=== PATIENT | male | born 1975 | race Caucasian/White ===

== ENCOUNTER 2022-03-30 09:24 | Outpatient (CLI) | payer BC, SELFPAY ==
--- NOTE | 2022-03-30 09:34 | ECG_ITS ---
Measurements Intervals [place] Rate: 78 P: 43 VA: 185 QRS: -17 QRSD: 82 T: 12 QT: 349 QTc: 397 Interpretive Statements SINUS RHYTHM INCOMPLETE RIGHT BUNDLE BRANCH BLOCK BASELINE ARTIFACT IS PRESENT NO PREVIOUS ECG AVAILABLE FOR COMPARISON Electronically Signed On 03-30-2022 16:03:36 WASTE TREATMENT OPERATOR by Zeina Briones M.D.
== END 2022-03-30 09:25 | disposition home or self-care (01) ==
PROVIDERS: PCP Nurse Practitioner Family; Visit Provider Orthopaedic Surgery
DX: F17.210 Nicotine dependence, cigarettes, uncomplicated (principal); I10 Essential (primary) hypertension; Z01.818 Encounter for other preprocedural examination; I45.10 Unspecified right bundle-branch block
CPT/HCPCS: 93005

== ENCOUNTER 2022-04-05 01:45 | Day surgery (SDC) | payer BC, SELFPAY ==
[2022-03-23 08:21] VITALS: BMI 30.5
--- NOTE | 2022-03-23 08:31 | PC.NURSE ---
Report to the Outpatient Waiting Room, entrance under the green pavilion located off [facility], at time _0800_ on date _[id number]_. Planned Procedure Time: _1000_. Time changes happen often and if your time is changed the preop area will call you the afternoon before. - You and your visitor will be asked to self-screen and do not enter if you have any COVID symptoms. - Only one visitor is requested with a max of two and NO children visitors are allowed at this time. - The patient visitor may be requested to leave or wait in car when not with patient due to distancing restrictions. - A mask is optional within the hospital. Patients may have clear liquids (water, carbonated beverages, clear teas, apple juice) until 3 hours prior to surgery with a maximum of 20 ounces. - No food from midnight until time of surgery Take the following medications with a SIP of water the morning of surgery: __Bystolic and Sertraline Medications to discontinue per physician ___None Date to take last dose Please no make-up, nail swedish, hairspray, perfume, deodorant, or body powder the day of surgery. No jewelry (including any body piercings) or valuables the day of surgery, leave them at home. Please take a shower or bath the night before, or the morning of, surgery with an antibacterial soap. Wear comfortable, loose fitting clothing. - Jewelry must be removed prior to entering the operating room. Rings and piercings that are not removed may be cut off. - The hospital will not accept responsibility for valuables. - Please leave all valuables, including medications, at home the day of surgery. If you are going home after surgery, a licensed company tanker truck driver must drive you home. - NO public transportation without another adult if you receive anesthesia. - We recommend that an adult stay with you for 24 hours following discharge. - We also recommend that you do not drive, make important decision, drink alcoholic beverages, or take any drugs that were not prescribed by your health care provider for at least 24 hours after your discharge time. Follow any additional instructions given to you from your surgeon. If you or anyone in your household have experienced Covid symptoms in the past week, please notify your surgeon or the nurse liaison at the phone number below for possible testing. Telephone instructions given to __Patient___and asked if any additional questions and then verbalized understanding. Patient advised to call surgeon office or pre surgery nurse liaison [phone] if any additional questions.
--- NOTE | 2022-03-31 14:57 | PM.IMHP ---
H&P: HPI History of Present Illness Date/Time: 03/31/22 14:57 Chief Complaint: the patient is a 46-year-old male who sees Dr. Pierre regarding his right shoulder. The patient has a chronic ongoing history of pain in the right shoulder this radiates into his upper arm he has pain with overhead type motion notes weakness and painful giving way with trying to do anything heavy or repetitive with the shoulder. It keeps him awake at night cannot go about his daily activities as he would like. He notes some limitation of function he has had chronic tendinitis in the shoulder but this has advanced and become more painful and weak over time. 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 He has tried a course of cortisone therapy and anti-inflammatories without significant relief. X-rays show type 2 acromion and mild AC joint arthrosis. An MRI scan was done that showed a full-thickness tear the anterior aspect of the supraspinatus tendon with a small portion of the tendon remaining intact posteriorly. There was a partial-thickness articular surface tear of the infraspinatus tendon as well at the insertion. There is also tendinitis and a partial-thickness tear of the subscapularis tendon not well characterized. No labral tear is seen. Long head of the biceps is intact and located in the groove. There is AC joint hypertrophy subacromial space is mildly narrowed no effusion is noted. At this point the patient is aware the above findings he has failed conservative measures and discuss further treatment options in detail Dr. Pierre he would now like to proceed with right shoulder surgical intervention. Review of Systems Review of Systems: Ten point review of systems otherwise negative [facility] Surgical History Surgical History History of hernia surgery Social History Social History Smoking packs per day: 2 Smoking cigarettes per day: 40.0 Years smoked: 15 Smoking pack-years: 30.00 Smoking status: Former smoker Smoking end date: 03/23/15 Alcohol intake: current Drinks per week: 21 Substance use type: marijuana Other substance usage details: Every once in awile Spiritual care concerns: No Meds Home Medications and Allergies Home Medications Medication Instructions Recorded Confirmed Type omeprazole 20 mg tablet,delayed 20 mg PO DAILY 03/06/19 03/23/22 History release allopurinol 300 mg tablet 300 mg PO DAILY 03/23/22 03/23/22 History nebivolol 5 mg tablet 5 mg PO DAILY 03/23/22 03/23/22 History rosuvastatin 40 mg tablet 40 mg PO HS 03/23/22 03/23/22 History sertraline 100 mg tablet 100 mg PO DAILY 03/23/22 03/23/22 History Allergies Allergy/AdvReac Type Severity Reaction Status Date / Time No Known Allergies Allergy Unverified 03/23/22 08:17 Exam Narrative: on exam the patient is noted be a well-developed well-nourished male no acute distress alert oriented x3. Normal mood and affect. He is noted to be 6 ft 3 in tall 243 lb with a BMI 30.4. Hearing and vision are intact. Respiratory is good no distress. Pulse regular rate and rhythm. Abdomen benign. Extremities show the patient's right shoulder to be painful with manipulation and range of motion. He has a positive impingement sign and painful giving way with rotator cuff strength testing. He has pain through the arc of motion particularly overhead type motion or reaching behind his back. Full active and passive motion are noted. Rotator cuff strength testing reproduces symptoms mildly weak with external rotation and abduction. No effusion or swelling shoulder joint is otherwise stable. Has full painless neck motion. Neurovascular is intact. Central nervous system within normal limits. Skin is intact without rashes or lesions. Assessment and Plan Assessment and plan (1) Unspecified rotator cuff tear or rup
--- NOTE | 2022-04-05 06:55 | WPDHPUPDATE1 ---
History and Physical Update Update Date/Time: 04/05/22 06:55 History and Physical has been reviewed, including an updated exam of the patient. There are NO changes in the patient's condition. Risks, benefits, and alternatives have been discussed and questions answered. Patient agrees to proceed with procedure.
[2022-04-05] MEDS: LACTATED RINGERS 1,000 ML 30 ML IV CONT ×2 (08:30→11:00)
[2022-04-05] MEDS: KETOROLAC 15 MG/ML VIAL (*BKC) IV PUSH (08:30)
[2022-04-05] MEDS: ACETAMINOPHEN 500 MG TABLET 1000 MG PO (08:30)
[2022-04-05 08:47] VITALS: BP 129/86; PULSE 76; RESP 14; TEMP 37; O2SAT 98
--- NOTE | 2022-04-05 08:49 | P.PNAN_ITS ---
Anes - Initial Pre Proc Eval Procedure: Operation Date: 04/05/22 10:00 Proposed Procedures p Right Shoulder Arthroscopy, Acromioplasty, Open Distal Clavicle Excision, Rotator Cuff Repair, Proceed As Indicated - Roderick Pierre MD Date/Time: 04/05/22 08:49 Surgeon: Roderick Pierre MD Pre Op Diagnosis: Rot Cuff Tear Rt Shoulder Patient Data Age: 46 Gender: M Height: 1.91 m Weight: 110.9 kg Allergies Allergy/AdvReac Type Severity Reaction Status Date / Time No Known Allergies Allergy Unverified 03/23/22 08:17 Home Medications Medication Instructions Recorded Confirmed Type omeprazole 20 mg tablet,delayed 20 mg PO DAILY 03/06/19 03/23/22 History release allopurinol 300 mg tablet 300 mg PO DAILY 03/23/22 03/23/22 History nebivolol 5 mg tablet 5 mg PO DAILY 03/23/22 03/23/22 History rosuvastatin 40 mg tablet 40 mg PO HS 03/23/22 03/23/22 History sertraline 100 mg tablet 100 mg PO DAILY 03/23/22 03/23/22 History Patient hx anesthesia problems: none Family hx anesthesia problems: none Results Review: All pre-operative results and documents have been reviewed as part of the pre- operative evaluation. [facility]LY [facility] Past Medical History Medical History (Updated 04/05/22 @ 08:49 by Deepak Boyle MD) HTN (hypertension) Hyperlipidemia Surgical History Surgical History History of hernia surgery Social History Social History Smoking packs per day: 2 Smoking cigarettes per day: 40.0 Years smoked: 15 Smoking pack-years: 30.00 Smoking status: Former smoker Smoking end date: 03/23/15 Alcohol intake: current Drinks per week: 21 Substance use type: marijuana Other substance usage details: Every once in awile Living arrangements: with family Spiritual care concerns: No Anes - Eval Final PreProcedure Day of Procedure 04/05/22 08:49 Patient weight: obese Heart: regular rate and rhythm Lungs: clear to auscultation Airway: Mallampati scale class II Neurological: alert and oriented Last oral intake: >/= 8 hours ASA classification: II Emergent: no Anesthetic plan: proceed Anesthesia type and monitoring: general ETT and standard monitoring Results Review: All pre-operative results and documents have been reviewed as part of the pre- operative evaluation. Informed Consent: The patient's anesthetic plan and its attendant risks and benefits were discussed with the patient/family/POA. Questions were solicited and answers provided to the satisfaction of the patient/family/POA.
--- NOTE | 2022-04-05 09:24 | WPDANESPNB ---
Anes - Peripheral Nerve Block Date/Time: 04/05/22 09:24 I have discussed with the patient/family/POA the placement of a peripheral nerve block for post-operative pain management, including associated risks, benefits, complications, and side effects. Alternative methods of post-operative analgesia were detailed. Questions were solicited and answers provided to the satisfaction of the patient/family/POA. Time-Out: A pre-procedural Time-Out was completed immediately before starting the procedure and confirmed: Patient Identification, Site, Procedure, Patient Position and the Availability of Requisite Equipment. Clinical Indications: Acute post-operative pain management requested by the operative surgeon. Nerve Block Insertion Note Anes-nerve block: interscalene right Patient position: supine Skin prep: chlorhexidine Needle: 22 gauge, stimulating, insulated echogenic needle. Needle length: 50 mm Technique: ultrasound Injectate: bupivacaine 0.5% with epi 5 mcg/ml (30 no epi) and dexamethasone (mg) (8) Observations: tolerated well Complications: none Procedure start time:: 917 Procedure end time:: 922
[2022-04-05] MEDS: ceFAZolin 2 GM/D5W 50 ML 2 GM/50 ML BAG IVPB (09:25)
--- NOTE | 2022-04-05 10:45 | W.PM.PROC2 ---
Procedure Note - Detailed Date of Procedure 04/05/22 Pre-op Diagnosis Rot Cuff Tear Rt Shoulder Post-op Diagnosis Same Procedure Performed Rotator cuff repair, distal clavicle excision Surgeon Roderick Pierre MD Client Experience Consultant Ceasar Ovalles Anesthesia General Description of Procedure . Patient brought to the operative 7. A general anesthetic was administered placed in the beach chair position the left shoulder exposed.? After sterile prep and drape standard portals were used for arthroscopy posterior lateral the joint itself looked reasonably good the biceps tendon was intact.? He had fraying and tearing of the rotator cuff area in the supraspinatus tear region.? Edematous the subacromial space and an intense bursa was encountered this was debrided with a shaver and acromioplasty performed arthroscopically.? He was quite tight however is acromion was then. I then proceeded to open the shoulder longitudinal incision made from the AC joint distalward over the shoulder.? Dissection carried down to the fascia the fascia of the aces acromioclavicular joint split the AC joint found a distal clavicle excision performed removing 3 to 4 millimeters of bone.? The edges beveled.? The deltoid was then split from the tip of the acromion and the rotator cuff thinning and tearing noted this is debrided and repaired with 2. Ethibond.? This tear was moderate sized.? At this point the deltoid was repaired to itself the prominent trapezius with 2. Ethibond I closed 2-0 Vicryl and popeye.? Sterile dressing applied patient tolerated well left the operating room satisfactory condition. Estimated Blood Loss 50 Drains No Packing No Pathology None sent Complications No immediate complications Condition Stable Disposition PACU
[2022-04-05 11:05] VITALS: BP 110/76; PULSE 64; RESP 19; TEMP 36.6; O2SAT 100
[2022-04-05 11:20] VITALS: BP 121/80; PULSE 66; RESP 18; O2SAT 99
[2022-04-05 11:35] VITALS: BP 129/75; PULSE 73; RESP 16; O2SAT 100
[2022-04-05 11:43] VITALS: BP 133/81; PULSE 65; RESP 16
--- NOTE | 2022-04-05 11:43 | P.OPB_ITS ---
Procedure Note - Brief Procedure Note - Brief Date of procedure: 04/05/22 Pre-op diagnosis: Rot Cuff Tear Rt Shoulder preop diagnosis impingement AC joint arthrosis and rotator cuff tendon tear right shoulder. Postop diagnosis- same, status post right shoulder arthroscopy acromioplasty open distal clavicle excision rotator cuff tendon repair. Procedure performed: Right shoulder arthroscopy acromioplasty open distal clavicle excision and rotator cuff tendon repair Description of procedure: patient was taken to the operating room April 05, 2022 I enter the room at 9:50 a.m. I assisted with positioning of the patient on the beach chair positioner on the operating room table followed by assisting with a sterile prep and drape for surgery. Dr. Pierre then entered the room and proceeded with the shoulder arthroscopy portion during that time I assisted with positioning of the arm and directing the arthroscope for visualization of the rotator cuff, the joint and the subacromial space. Once the arthroscopic portion was completed I then assisted with wound retraction on the open procedure, suction and hemostasis with the cautery. Once the distal clavicle excision and rotator cuff tendon repair was completed I then proceeded to irrigate the wound after good hemostasis was obtained. I then proceeded to close the skin incision with 2-0 Vicryl and popeye I then applied a sterile dressing and placed the patient in the shoulder immobilizer. I then assisted with transfer of the patient from the operating table to the stretcher for transfer to the recovery room. The patient was in good condition and stable. Total blood loss was approximately 50 cc. Patient was expected to be discharged after the outpatient procedure today. I exited the room at 11:00 a.m. Implants: N/A Surgeon: Roderick Pierre MD surgeon Ceasar Ovalles PA-C physician office assistant
[2022-04-05 12:10] VITALS: BP 134/88; PULSE 70; RESP 16
== END 2022-04-05 12:35 | disposition home or self-care (01) ==
PROVIDERS: PCP Nurse Practitioner Family; Visit Provider Orthopaedic Surgery
PROC: (CPT 29805; principal; 2022-04-05 10:00)
DX: M75.101 Unspecified rotator cuff tear or rupture of right shoulder, not specified as traumatic (principal); G89.18 Other acute postprocedural pain; I10 Essential (primary) hypertension; E78.5 Hyperlipidemia, unspecified; Z87.891 Personal history of nicotine dependence; F12.90 Cannabis use, unspecified, uncomplicated; E66.9 Obesity, unspecified; Z68.30 Body mass index [BMI] 30.0-30.9, adult
CPT/HCPCS: 23412; 23120; 64415; A9270; J0690; J1100; J1885; J2250; J2405; J2704; J2710; J3010; J7120

== ENCOUNTER 2024-07-25 01:36 | Day surgery (SDC) | payer BC, SELFPAY ==
[2024-07-21 11:49] VITALS: BMI 30.6
--- OUTSIDE RECORDS SUMMARY | 2024-07-25 01:41 | XMS_ITS | Data Portability ---
Author Organization [place] [facility], Main Office Address [address] [place] [address] Care Team Providers Care Equipment Application Specialist Name Role Phone KEREN YODER Primary Care Provider KEREN YODER Referring Provider [phone] Assessment Encounter Date Assessment Date Assessment LastModified by Organization Details LastModified Time 06/27/2022 06/27/2022 Patient returns status post rotator cuff repair right. His he is doing quite well status post surgery he has got good motion strength neurologically he is intact he has progressed nicely. I think he can return to normal activity at this point will return to work. If he has any changes or problems I have asked him to call. Otherwise he is dismissed to normal activity. tori Not available 06/27/2022 14:13:32 Plan of Treatment Reminders Order Date Submit Date Provider Last Modified By Organization Details Last Modified Time Details Appointments None recorded. Lab uric acid, serum or plasma 2022 023 [email or web address] [facility] [address] [place], [address], 3 08:36:00 TSH, serum or plasma 2022 023 [email or web address] [facility] [address] [place], [address], 3 08:36:01 lipid panel, serum 2022 023 [email or web address] [facility] [address] [place], [address], 3 08:36:00 CBC w/ auto diff 2022 023 [email or web address] [facility] [address] [place], [address], 3 08:36:00 CMP, serum or plasma 2022 023 [email or web address] [facility] [address] [place], [address], 3 08:36:00 glycohemogl obin, total, blood 2022 023 [email or web address] [facility] [address] [place], [address], 3 08:36:00 Referral gastroenter ologist referral - Colonoscopy [address] [facility], [address], [address], [address], 4 08:46:41 Procedures None recorded. Surgeries None recorded. Imaging None recorded. Medication Orders rosuvastati n 40 mg tablet 2022 023 [facility][id number], [address] [place], [address], 3 17:19:40 Patient TargetsNo targets recorded. Patient Instructions Encounter Date Encounter Id Patient Instructions Last Modified By Organization Details Last Modified Time 03/13/2023 [id number] Pt aware of Bogu e departure 03/13/23. Recommend fu in 3-4 mo for anxiety, lipid, htn. 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 [id number] [facility] [address] [place], [address], 06/14/2022 22:06:02 05/16/19 23 05/11/2022 home sleep study No observ ation record ed. [id number] [facility] [address] [place], [address], 06/14/2022 22:06:02 Result Notes None recorded. Problems Name Problem SNOMED Code Status Onset Date Resolution Date Notes Provider Name and Address Organization Details Recorded Time Impacted cerumen of bilateral ears 7406260237590 108 Active 2019 Not Available [facility] 3 22:05:04 Rupture of rotator cuff of left shoulder 3632981840957 9102 Active 2021 Not Available [facility] 3 22:05:04 Pain of right shoulder joint 2059389229485 9100 Active 2021 Not Available [facility] 3 22:05:04 Tendinitis of right rotator cuff 4800072829866 9104 Active 2021 Not Available [facility] 3 22:05:05 Heartburn 12431803 Active 2019 Not Available [facility] 3 22:05:05 Obsessive- compulsive disorder 772395985 Active 2019 Not Available [facility] 3 22:05:05 Insomnia 007917817 Active 2019 Not Available [facility] 3 22:05:05 Partial thickness rotator cuff tear 515408650 Active 2022 Not Available [facility] 3 22:05:05 Full thickness rotator cuff tear 881173283 Active 2021 Not Available [facility] 3 22:05:05 Impingemen t syndrome of right shoulder region 7946324791308 02 Active 2021 Not Available [facility] 3 22:05:05 Elevated blood-pres sure reading without diagnosis of hypertensi on 983262681 Active 2019 Not Available [facility] 3 22:05:05 Anxiety 00219350 Active 2019 Not Available [facility] 3 22:05:06 Hyperlipid emia 45103656 Active 2019 Not Available [facility] 3 22:05:06 Acid reflux 164488995 Active 2019 Not Available [facility] 3 22:05:06 Sleep apnea 06025757 Active 2021 Not Available [facility] 3 22:05:06 Gout 90222579 Active 2019 Not Available [facility] 3 22:05:06 Essential hypertensi on 22611273 Active 2022 Keren Yoder NP [address], [address] , [facility] [employer] [facility] 3 17:09:08 Notes:Keren Yoder NP [facility] home sleep study 05/11/22 AHI = 6 Medical History: Anxiety/OCD Obesity with mild OSAHS, AHI = 6, 05/11/22 Hypertension Mixed hyperlipidemia KATERIN Gout Right supraspinatus/infraspinatus tears Procedure History: Herniorrhaphy Right rotator cuff debridement 2021 Problem Notes None recorded. Procedures Surgical History Date Name Laterality Status Provider Name and Address Organization Details Recorded Time Hernia Repair completed Not Available [facility] 06/14/2022 22:04:29 Imaging Results Imaging Date Name Status LastModified by Organiz ation Details LastModified Time 05/11/2022 home sleep study completed [id number] [facility] [address] [place], [address], 06/14/2022 22:06:02 05/11/2022 home sleep study completed [id number] [facility] [address] [place], [address], 06/14/2022 22:06:02 Procedure Notes None recorded. Medical Equipment None Reported. Allergies No known drug allergies Medications Name Sig Start Date Stop Date Status Note LastModified by Organization Details LastModified Time amoxicill in 500 mg capsule TK ONE C PO TID TAT 07/13 completed Not Available Not Available Not Available prednison e 10 mg tablet 12/15 completed Not Available Not Available Not Available triamcino lone acetonide 0.5 % topical cream APPLY THIN LAYER TOPICALL Y TO THE AFFECTED AREA TWICE DAILY 03/13 completed Not Available Not Available Not Available meloxicam 15 mg tablet TAKE 1 TABLET BY MOUTH EVERY DAY NEEDED WITH FOOD active Not Available Not Available No t Available bupivacai ne HCl 0.5 % (5 mg/mL) injection solution Take 20 mg by injectio n route. 12/15 completed Not Available Not Available Not Available sertralin e 100 mg tablet TAKE 1 TABLET BY MOUTH EVERY DAY active Not Available Not Available No t Available prednison e 10 mg tablets in a dose pack Take 1 tab by mouth, 3 times a day for 3 daysTake 1 tab by mouth 2 times a day for 2 daysTake 1 tab by mouth once a day for 1 day 12/15 completed Not Available Not Available Not Available Kenalog 10 mg/mL suspensio n for injection In office injectio n administ ered by the provider 12/15 completed Not Available Not Available Not Available hydrocodo ne 7.5 mg-acetam inophen 325 mg tablet TAKE 1 TABLET BY MOUTH EVERY 4 HOURS NEEDED FOR PAIN 03/13 completed Not Available Not Available Not Available indometha candace 50 mg capsule TK 1 C PO TID 12/11 completed Not Available Not Available Not Available omeprazol e 20 mg capsule,d elayed release Take 1 capsule every day by oral route. 03/13 completed Not Available Not Available Not Available allopurin ol 300 mg tablet TAKE 1 TABLET BY MOUTH EVERY DAY active Not Available Not Available No t Available zolpidem 5 mg tablet 1 tab po nightly prn sleep active Not Available Not Available No t Available lorazepam 1 mg tablet TK 1 T PO 30 MINUTES PRIOR TO INJECTIO N 12/11 completed Not Available Not Available Not Available levofloxa candace 500 mg tablet TK 1 T PO QD 12/11 completed Not Available Not Available Not Available methylpre dnisolone 4 mg tablets in a dose pack FPD 12/11 completed Not Available Not Available Not Available gentamici n 0.1 % topical ointment QUAN AA BID UTD 12/11 completed Not Available Not Available Not Available naproxen 500 mg tablet TK 1 T PO BID WF FOR 10 TO 14 DAYS 12/11 completed Not Available Not Available Not Available rosuvasta tin 10 mg tablet TAKE 1 TABLET BY MOUTH EVERY NIGHT 03/30 completed stopped taking- Nov 2021. Not Available Not Available Not Available rosuvasta tin 40 mg tablet TAKE 1 TABLET BY MOUTH EVERYDAY AT BEDTIME active Not Available Not Available No t Available lidocaine (PF) 5 mg/mL (0.5 %) injection solution Take 30 mg by injectio n route. 12/15 completed Not Available Not Available Not Available nebivolol 5 mg tablet TAKE 1 TABLET DAILY DIRECTED 2023 active Not Available Not Available Not Avai lable Colcrys 0.6 mg tablet TK 1 T PO BID 12/11 completed Not Available Not Available Not Available Vitals Date Recorded Body mass index (BMI) Body height Body weight Provider Name and Address Organization Details Last Updated DateTime 04/18/2022 30.5 kg/m2 190.5 cm 730316.54 g Not Available [facility] 06/14/2022 22:05:00 Date Recorded Body mass index (BMI) Body height Body weight Provider Name and Address Organization Details Last Updated DateTime 05/02/2022 30.5 kg/m2 190.5 cm 496250.54 g Not Available [facility] 06/14/2022 22:05:01 Date Recorded Body mass index (BMI) Body height Body weight Provider Name and Address Organization Details Last Updated DateTime 05/30/2022 30.5 kg/m2 190.5 cm 511145.54 g Not Available [facility] 06/14/2022 22:05:01 Date Recorded Body height Body mass index (BMI) Body weight Provider Name and Address Organization Details Last Updated DateTime 06/27/2022 190.5 cm 30.5 kg/m2 634740.54 g Nely Louise ATC L [place] [facility] 06/27/2022 14:06:56 Date Recorded Body height Body mass index (BMI) Body weight Body temperature Heart rate Respiratory rate Oxygen saturation Oxygen saturation in Arterial blood by Pulse oximetry Pain severity - 0-10 verbal numeric rating [Score] - Reported Systolic blood pressure Diastolic blood pressure Provider Name and Address Organization Details Last Updated DateTime 3 190.5 cm 30.6 kg/m2 959896. 83 g 96.1 [degF] 85 /min 16 /min 95 % 95 % 0 118 mm[Hg] 70 mm[Hg] Keren Johnson RN [place] [facility] 3 17:00:59 Social History Question Answer Notes LastModified by Organizat ion Details LastModified Time Tobacco Smoking Status Former Smoker Quit 5 years ago Not Available [facility] 06/14/2022 22:04:24 Do You Have An Advance Directive? No [id number] Information not available 06/14/2022 What Is Your Level Of Alcohol Consumption? Occasional MIGRATION.33471 [id number] Information not available 06/14/2022 What Is Your Code Status? Full Code [id number] Information not available 06/14/2022 In The 14 Days Before Symptom Onset, Have You Had Close Contact With A Laboratory-confi rmed COVID-19 While That Case Was Ill? No [email or web address].[id number] [id number] Information not available 06/14/2022 In The 14 Days Before Symptom Onset, Have You Had Close Contact With A Person Who Is Under Investigation For COVID-19 While That Person Was Ill? No MIGRATION.53567 [id number] Information not available 06/14/2022 What Type Of Diet Are You Following? 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 No MIGRATION.44873 74577 Information not available 06/14/2022 Do You Use Insect Repellent Routinely? Yes MIGRATION.53313 [id number] Information not available 06/14/2022 [facility] MIGRATION.78906 38407 Information not available 06/14/2022 Do You Have A Medical Power Of Area Sales Manager? No MIGRATION.41113 35070 Information not available 06/14/2022 Do You Have Any Pets? Yes MIGRATION.[id number] Information not available 06/14/2022 What Is Your Relationship Status? MIGRATION.[id number] Information not available 06/14/2022 Do You Use Your Seat Belt Or Car Seat Routinely? Yes Information not available 03/13/2023 Do You Have Smoke And Carbon Monoxide Detectors In Your Home? Yes MIGRATION.28614 [id number] Information not available 06/14/2022 Are You Passively Exposed To Smoke? No MIGRATION.85826 31733 Information not available 06/14/2022 Are There Any Smokers In Your House? No MIGRATION.55323 01899 Information not available 06/14/2022 Do You Participate In Social Media? Yes Information not available 03/13/2023 Do You Feel Stressed (tense, Restless, Nervous, Or Anxious, Or Unable To Sleep At Night)? [id number] MIGRATION.49614 91733 Information not available 06/14/2022 Do You Use Sunscreen Routinely? Yes MIGRATION.73360 67440 Information not available 06/14/2022 Have You Recently Traveled Abroad? No MIGRATION.49532 56250 Information not available 06/14/2022 Are You Currently In School? No MIGRATION.04307 12573 Information not available 06/14/2022 Do You Have Any Dietary Restrictions? No MIGRATION.47476 06479 Information not available 06/14/2022 Sex: Unknown Functional Status Question Answer Note LastModified by [email or web address] ion Details LastModified Time What is your exercise level? Occasional [id number] Information not available 06/14/2022 Mental Status None recorded. Family History Relationship Description Onset Age of this Age Resolved Age Notes LastModified by Organization Details LastModified Time Father Sleep apnea [id number] Not available 06/14/2022 22:04:30 Medical History Condition Response BLINDNESS N RHEUMATIC FEVER N KIDNEY STONES N BLADDER PROBLEMS N MRSA N OTHER # 1 N POLIO N LUNG DISEASE/DISORDER N COPD N RADIATION / CHEMOTHERAPY N Other # 2 N BLOOD DISEASES N SURGERY N EAR OR HEARING PROBLEMS N MUMPS N FEMALE PROBLEMS / INFECTIONS N DEPRESSION (INCLUDING POST ) N BOWEL PROBLEMS N STROKE/TIA N THYROID DISEASE N ULCERS N BENIGN PROSTATIC HYPERPLASIA N MEASLES N CERVICALGIA N TB SKIN TEST N MYOCARDIAL INFARCTION N OBESITY N PARAPELGIA N GERD/NAUSEA N ANEURYSM N URINARY/BLADDER/KIDNEY PROBLEMS N CORONARY ARTERY DISEASE (CAD) N MENIERE'S DISEASE N ADDICTION CONCERNS N ENDOMETRIOSIS N USE OF BLOOD THINNERS N SKIN PROBLEMS N EMPHYSEMA N GASTROINTESTINAL DISORDER N MUSCLE,JOINT OR BONE PROBLEMS N GASTROINTESTINAL BLEEDING N BLOOD CLOTS N ASTHMA N CATARACTS N ERECTILE DYSFUNCTION N GI PROBLEMS N CHF N Low Testosterone N NEUROPATHY N INFERTILITY N AIDS/HIV N FRACTURES N CHEMOTHERAPY / RADIATION N VISION/EYE PROBLEMS N LIVER DISEASE N MALE HYPOGONADISM N HYPERTENSION Y ANXIETY DISORDER N BLOOD TRANSFUSION N ANEMIA/BLOOD DISORDER N CHRONIC EAR INFECTIONS N BRONCHITIS N TUBERCULOSIS N GLAUCOMA N FOOT PROBLEM N DIVERTICULITIS N CHICKENPOX N SLEEP APNEA N ALLERGIES/HAYFEVER N INFECTIOUS DISEASE N HEART ARRHYTHMIA N PROSTATE N INSOMNIA N HIGH CHOLESTEROL / HYPERLIPIDEMIA Y EYE PROBLEMS N HYPERTHYROIDISM N EATING DISORDER N NEUROLOGICAL PROBLEMS N EDEMA N CHRONIC PAIN SYNDROME N HYPOTHYROIDISM N CAROTID BLOCKAGE N CONSTIPATION N BACK / NECK PROBLEMS N HAVE YOU BEEN HOSPITALIZED OR SEEN IN [facility] IN THE PAST YEAR ? N ATHEROSCLEROSIS N BREAST PROBLEMS N DIALYSIS N ECZEMA N FIBROMYALGIA N OSTEOPOROSIS N ARTHRITIS N NO SIGNIFICANT PAST MEDICAL HISTORY N APPENDICITIS N DIABETES, TYPE N BAD TEETH N HEARTBURN / REFLUX Y ADD/ADHD N AUTISM SPECTRUM DISORDER (ASD) N HEPATITIS / LIVER DISEASE N PULMONARY DISEASE N GOUT Y SLEEP DISORDER N ALZHEIMER'S DISEASE N PAIN N HERPES N DEMENTIA N SEIZURES/EPILEPSY N HEADACHES/MIGRAINES N VASCULAR DISEASE N PACEMAKER N DIZZINESS N KIDNEY DISEASE N HEART DISEASE/HEART PROBLEMS N SCARLET FEVER N MULTIPLE SCLEROSIS N MENTAL DISORDER/ILLNESS N DEVELOPMENTAL OR BEHAVIORAL DISORDERS N CARDIAC ARRHYTHMIA N CANCER: SPECIFY N PNEUMONIA N Gall Stones N ATRIAL FIBRILLATION N PULMONARY EMBOLISM N AUTOIMMUNE DISEASE N Immunizations Vaccine Type Date Status Note Provider Nam e and Address Organization Details Recorded Time SARS-COV-2 (COVID-19) vaccine, UNSPECIFIED 1 completed Not Available [facility] 06/14/2022 22:05:55 Tdap 2 completed Not Available [facility] 06/14/2022 22:05:56 Influenza, split virus, quadrivalent, PF 2 completed Not Available [facility] 06/14/2022 22:05:56 Influenza, split virus, quadrivalent, PF 1 completed Not Available [facility] 06/14/2022 22:05:56 Influenza, split virus, quadrivalent, PF 3 completed Keren Johnson RN [facility] [employer] [facility] 03/13/2023 18:27:02 Past Encounters Encounter ID Performer Location Encounter Start Date Encounter Closed Date Diagnosis/Indication Diagnosis SNOMED-CT Code Diagnosis ICD10 Code Diagnosis Note [id number] [facility] [address] [facility] [place] [address] 07/13/2020 00:00:00 07/13/2020 11:12:03 [id number] [facility] [address] [facility] [place] [address] 01/12/2021 00:00:00 01/12/2021 17:34:53 [id number] [facility] [address] [facility] [place] [address] 06/15/2021 00:00:00 06/15/2021 17:48:34 [id number] [facility] [place] [address] [place] [address] 06/22/2021 00:00:00 06/22/2021 16:37:34 [id number] [facility] [place] [address] [place] [address] 09/09/2021 00:00:00 09/09/2021 15:36:51 [id number] [facility] [address] [facility] [place] [address] 12/15/2021 00:00:00 12/21/2021 07:53:16 [id number] [facility] [address] [place] [address] 12/22/2021 00:00:00 12/22/2021 14:14:57 [id number] [facility] [address] [facility] [place] [address] 03/30/2022 00:00:00 03/30/2022 11:54:56 [id number] [facility] [place] [address] [place] [address] 04/18/2022 00:00:00 04/18/2022 14:09:46 [id number] [facility] [place] [address] [place] [address] 05/02/2022 00:00:00 05/02/2022 14:33:02 [id number] [facility] [place] [address] [place] [address] 05/30/2022 00:00:00 05/30/2022 14:13:49 [id number] Roderick Pierre MD [facility] [place] [address] [place] [address] 06/27/2022 13:51:10 06/27/2022 14:30:13 Pain of right shoulder joint 5101030112 4012855 M25.511 Impingemen t syndrome of right shoulder region 9073200666 45746 M75.41 Partial th ickness rotator cuff tear 747001649 M75.932 [id number] Keren Yoder NP [facility] [address] 03/13/2023 16:49:04 03/13/2023 17:42:50 Administration of influenza vaccine 13217692 Z23 Anxiety 87965598 F41.9 Sertraline 100 mg po daily. Essential hypertension 46523304 I10 Nebivolol 5 mg Hyperlipidemia 61842321 E78.5 Rosuvastat in 40 mg po nightly. Sleep apnea 93043267 G47 .30 CPAP. Gout 73315638 M10.9 allopurino l 300 mg po daily. No flares in 6 mo. Watching diet. Anemia screening 6334316 07 Z13.0 Screening for malignant neoplasm of colon 815426363 Z12.11 GI referral sent for colonoscop y. Diabetes m ellitus screening 843201721 Z13.1 Thyroid di sorder screening 416003212 Z13.29 Adult heal th examination 072006435 Z00.00 Encouraged well balanced meals, active lifestyle, and routine vision and dental appt. Health Concerns Section Related Observation LastModified by Organization Detai ls LastModified Time None Recorded Concern Status LastModified by Organization Details LastModified Time None Recorded Advance Directives Directive N: Payers Encounter Date Sequence Insurance Name Policy Number Policy Hernandez Covered Member ID Hernandez Member ID Guarantor Name 06/27/2022 1 [employer] [id number] Faheem Farley [id number] Anand Farley 03/13/2023 1 [facility]: (PPO) [id number] Faheem Farley [id number] Anand Farley Notes Date Note Type Note Provider Name and Address Organization Details Recorded Time 06/27/2022 text/html Patient returns status post rotator cuff repair right. He has got full full motion now and his strength is returning he seems quite happy he has got very little in the way of pain wants to return to work. Roderick Pierre MD [address], [place], [address], [employer] 06/27/2022 14:13:54 03/13/2023 text/html Here for wellness visit. Lipid- low fat diet. Staying active. 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 Never had colonoscopy.[facility]. Keren Yoder NP [address], [place], [address], [employer] 03/13/2023 17:40:15
--- OUTSIDE RECORDS SUMMARY | 2024-07-25 01:41 | XMS_ITS | Continuity of Care Document ---
Author Organization [facility] Address [address] [place] [address] [address] [place] [address] Phone Care Team Providers Care Market Asset Protection Manager Name Role Phone Jaspreet OD, Bobbi Unavailable Unavailable Allergies, Adverse Reactions, Alerts Substance Reaction Status Criticality No Known Allergies Active No Inform ation Medications Medication Instructions Dosage Effective Dates (start - stop) Status Comments allopurinol 100 mg tablet take 1 tablet by oral route 3 times every day 100 MG - Active omeprazole 40 mg capsule,delayed release take 1 capsule by oral route every day before a meal 40 MG - Active Bystolic 5 mg tablet take 1 tablet by oral route every day 5 MG - Active sertraline 100 mg tablet take 1 tablet by oral route every day 100 MG - Active Valtrex 1 gram tablet take 2 tablet by oral route every 12 hours 2000 MG - No Longer Active Chantix Starting Month Rickey 0.5 mg (11)-1 mg (42) tablets in dose pack use as directed - No Longer Active OMEPRAZOLE (unknown strength) take 2 capsule by oral route every day before a meal Not Available - No Longer Active Procedures Procedure Date N/C Glasses Check No Charge Visit Results Test Name Date and Time Measure Units Reference Range Abnormal Flag Status Commen ts Panel Description: [id number] Final Image Zeiss Result 1 Panel Description: [id number] Final Image Zeiss Result 2 Panel Description: [id number] Final Image Zeiss Result 3 Panel Description: [id number] Final Image Zeiss Result 4 Advance Directives Directive Yes / No Effective Date File Name No Information Encounters Encounter Description Practice Location Reason(s) For Visit Diagnoses Date Provider Providers Copied on Encounter [facility], [address] [place] [address], [id number], tel:[phone] [facility] DW[facility] ZUNIGA blurry vision (chief complaint) Anatomical narrow angle of bilateral eyePresbyopia 4 Jaspreet Martines. [address], [address], [place], [address], [place]. tel:[phone] Referring Provider: Bobbi Valdez, [address], [place], [address]. tel:[phone] [facility], [address] [place] [address], [id number], tel:[phone] [facility] ZUNIGA No Information 9 Natacha Alejandro. [address], [address], [place], [place], [id number] , [place]. tel:[phone] [facility], [address] [place] [address], [id number], [place] tel:[phone] [facility] ZUNIGA No Information 4 Natacha Alejandro. [address], [address], [place], [place], [id number] , [place]. tel:[phone] Referring Provider: Bobbi Valdez, [address], [place], [address]. tel:[phone] [facility], [address] [place] [address], [id number], [place] tel:[phone] [facility] ZUNIGA [facility] Jaspreet Martines. [address], [address], [place], [address], [place]. tel:[phone] Referring Provider: Bobbi Valdez, [address], [place], [address]. tel:[phone] Family History Family Member Type Diagnosis Age At Onset No Information Payers Payer name Insurance type Covered green party ID [id number] Social History Type Description Quantity Date Captured Comments Alcohol Use Details Caffeine Use Details Tobacco Use Status No Information Smoking Status Former smoker Smoking Tobacco Use Details Cigarette: No Details Available Cigarette: No Details Available Non-Smoking Tobacco Use Details : No Details Available : No Details Available Sex Male Vital Signs Date / Time: Height Weight BMI Pulse Rate Blood Pressure Temperature Respiratory Rate Body Surface Area Head Circumference Head Circ. Percentile Wt./Bob. Percentile BMI percentile Pulse Ox Inhaled Ox 10:32 AM 75.00 in 108.862 kg (240.00 lbs) 30.0 0 kg/m eter (2) Chief Complaint And Reason For Visit From encounter dated '05/28/2023 09:25'. blurry vision (chief complaint). Description: The 47 year old male presents for evaluation of blurry vision, OU, at near, constant and getting worse. He's been using OTC readers and grabbing stronger and stronger ones over time. He's now using a +1.75 OTC reader. Reason For Referral Reason For Referral No Information Plan Of Treatment Date Type Action Status Goal Tobacco cessation counseling completed Future Order: Radiology Order Ze [facility] HD-OCT DWIGHT ([id number]), Sent on: Sent History Of Present Illness Encounter Date Complaint History Of Prese nt Illness blurry vision The 47 year old male presents for evaluation of blurry vision, OU, at near, constant and getting worse. He's been using OTC readers and grabbing stronger and stronger ones over time. He's now using a +1.75 OTC reader. Functional Status Date Functional Assessmen t No Information Instructions Date Instruction Additional Infor cain Impression/Plan Related to Anato mical narrow angle of bilateral eye Impression/Plan Related to Presb yopia - Return in 1 year w rafael Vogel OD for Complete Exam. Discussed maybe doing low grade CL rx if worsen Related to Hyperopia Hyperopia OU/latent - Mild, Discussed diagnosis in detail with patient. Advised patient of condition. Will continue to observe condition and or symptoms. Related to Hyperopia Assessments Type Assessment Date assessment Anatomical narrow angle of bilat eral eye impression Anatomical narrow angle of bilat eral eye: H40.033 assessment Presbyopia impression Presbyopia: H52.4 Patient Care Teams Name Effective Dates (start - stop) Status Members No Information
[2024-07-25 11:25] VITALS: BP 151/97; PULSE 74; RESP 18; TEMP 36.8; O2SAT 99
[2024-07-25] MEDS: LACTATED RINGERS 1,000 ML 150 ML IV CONT (11:30)
--- NOTE | 2024-07-25 12:12 | P.PNAN_ITS ---
Anes - Initial Pre Proc Eval Procedure: Operation Date: 07/25/24 13:00 Proposed Procedures p Screening Colonoscopy - Daniel Berg MD Date/Time: 07/25/24 12:12 Surgeon: Daniel Berg MD Pre Op Diagnosis: Screening Patient Data Age: 49 Gender: M Height: 1.91 m Weight: 106.5 kg Last Vital Signs Temp 98.2 F 07/25/24 11:25 Pulse 74 07/25/24 11:25 Resp 18 07/25/24 11:25 BP 151/97 H 07/25/24 11:25 Pulse Ox 99 07/25/24 11:25 O2 Del Method Room Air 07/25/24 11:25 Allergies Allergy/AdvReac Type Severity Reaction Status Date / Time poison arlene extract Allergy Rash Verified 07/25/24 11:24 Home Medications ?Medication ?Instructions ?Recorded ?Confirmed ?Type allopurinol 300 mg tablet 300 mg PO DAILY #90 tabs 09/21/23 07/25/24 Rx nebivolol 5 mg tablet 5 mg PO DAILY #90 tabs 04/29/24 07/25/24 Rx omeprazole 20 mg tablet,delayed 20 mg PO DAILY #90 tabs 04/29/24 07/25/24 Rx release rosuvastatin 5 mg tablet 5 mg PO DAILY #90 tabs 04/29/24 07/25/24 Rx sertraline 100 mg tablet 100 mg PO DAILY #90 tabs 05/22/24 07/25/24 Rx semaglutide (weight loss) 0.25 0.25 mg (0.5 mL) subcut WEEKLY #2 06/03/24 07/21/24 Rx mg/0.5 mL subcutaneous pen mL injector (Wegovy) semaglutide (weight loss) 0.5 0.5 mg (0.5 mL) subcut WEEKLY #2 mL 06/03/24 07/21/24 Rx mg/0.5 mL subcutaneous pen injector (Wegovy) semaglutide (weight loss) 1 mg/0.5 1 mg (0.5 mL) subcut WEEKLY #6 mL 06/03/24 07/21/24 Rx mL subcutaneous pen injector (Wegovy) Patient hx anesthesia problems: none Family hx anesthesia problems: none Results Review: All pre-operative results and documents have been reviewed as part of the pre- operative evaluation. [facility] Past Medical History Medical History (Updated 06/03/24 @ 13:34 by Ya Morse APRN) Tinea corporis Pityriasis rosea ALEJO (generalized anxiety disorder) Hyperlipidemia HTN (hypertension) Surgical History Surgical History (Updated 09/21/23 @ 13:54 by Jazz Bourgeois CMA) H/O rotator cuff surgery History of hernia surgery Family History Family History (Updated 09/21/23 @ 13:47 by Jazz Bourgeois CMA) Other No family history of disorders Social History Social History (Updated 09/21/23 @ 13:48 by Jazz Bourgeois CMA) Smoking packs per day: 2 Smoking cigarettes per day: 40.0 Years smoked: 20 Smoking pack-years: 40.00 Smoking status: Former smoker Tobacco type: cigarettes Smokeless tobacco user: other Smoking end date: 03/23/15 Additional smoking assessment comments: CURRENTLY USES NICOTINE ROGUE POUCHES 6MG DAILY Alcohol intake: current Drinks per week: 12 Alcohol use details: 12 PACK ON WEEKENDS Substance use: never Substance use type: does not use Other substance usage details: Every once in awile Do You Feel Safe in your Home?: Yes Lack of Transportation: No Lack of Food: Never True Current Housing: I Have Housing Concerned About Future Housing: No Difficulty Paying Gas/Electric Bills: No Difficulty Paying for Meds: No Currently Unemployed: No Education: Don't Know Difficulty w/ Childcare or Family Care: No Living arrangements: with family Additional living arrangements comments: Occupation/Education: occupation 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 Informed Consent: The patient's anesthetic plan and its attendant risks and benefits were discussed with the patient/family/POA. Questions were solicited and answers provided to the satisfaction of the patient/family/POA.
--- NOTE | 2024-07-25 12:23 | PM.HPGS ---
History of Present Illness History of Present Illness Consent: Risks, benefits, and alternatives have been discussed and questions answered. Patient agrees to proceed with procedure. Chief complaint: Screening Narrative: Anand Farley is a 49 year old male here for first screening colonoscopy Review of Systems Review of Systems: All systems reviewed & are unremarkable except as noted in HPI and below PMFSH Past Medical History Medical History (Updated 07/25/24 @ 12:26 by Daniel Berg MD) Colon cancer screening Tinea corporis Pityriasis rosea ALEJO (generalized anxiety disorder) Hyperlipidemia HTN (hypertension) Surgical History Surgical History (Updated 09/21/23 @ 13:54 by Jazz Bourgeois CMA) H/O rotator cuff surgery History of hernia surgery Family History Family History (Updated 09/21/23 @ 13:47 by Jazz Bourgeois CMA) Other No family history of disorders Social History Social History (Updated 09/21/23 @ 13:48 by Jazz Bourgeois CMA) Smoking packs per day: 2 Smoking cigarettes per day: 40.0 Years smoked: 20 Smoking pack-years: 40.00 Smoking status: Former smoker Tobacco type: cigarettes Smokeless tobacco user: other Smoking end date: 03/23/15 Additional smoking assessment comments: CURRENTLY USES NICOTINE ROGUE POUCHES 6MG DAILY Alcohol intake: current Drinks per week: 12 Alcohol use details: 12 PACK ON WEEKENDS Substance use: never Substance use type: does not use Other substance usage details: Every once in awile Do You Feel Safe in your Home?: Yes Lack of Transportation: No Lack of Food: Never True Current Housing: I Have Housing Concerned About Future Housing: No Difficulty Paying Gas/Electric Bills: No Difficulty Paying for Meds: No Currently Unemployed: No Education: Don't Know Difficulty w/ Childcare or Family Care: No Living arrangements: with family Additional living arrangements comments: Occupation/Education: occupation 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 - [employer] Spiritual care concerns: No Agree to blood products: Yes Meds Home Medications and Allergies Home Medications ?Medication ?Instructions ?Recorded ?Confirmed ?Type allopurinol 300 mg tablet 300 mg PO DAILY #90 tabs 09/21/23 07/25/24 Rx nebivolol 5 mg tablet 5 mg PO DAILY #90 tabs 04/29/24 07/25/24 Rx omeprazole 20 mg tablet,delayed 20 mg PO DAILY #90 tabs 04/29/24 07/25/24 Rx release rosuvastatin 5 mg tablet 5 mg PO DAILY #90 tabs 04/29/24 07/25/24 Rx sertraline 100 mg tablet 100 mg PO DAILY #90 tabs 05/22/24 07/25/24 Rx semaglutide (weight loss) 0.25 0.25 mg (0.5 mL) subcut WEEKLY #2 06/03/24 07/21/24 Rx mg/0.5 mL subcutaneous pen mL injector (Wegovy) semaglutide (weight loss) 0.5 0.5 mg (0.5 mL) subcut WEEKLY #2 mL 06/03/24 07/21/24 Rx mg/0.5 mL subcutaneous pen injector (Wegovy) semaglutide (weight loss) 1 mg/0.5 1 mg (0.5 mL) subcut WEEKLY #6 mL 06/03/24 07/21/24 Rx mL subcutaneous pen injector (Wegovy) Allergies Allergy/AdvReac Type Severity Reaction Status Date / Time poison arlene extract Allergy Rash Verified 07/25/24 11:24 Vital Signs Vital Signs - 24 hr 07/25/24 11:25 Temperature 98.2 F Pulse Rate 74 Respiratory Rate 18 Blood Pressure 151/97 H Pulse Oximetry 99 Oxygen Delivery Room Air Exam Const: General: comfortable and no acute distress HENMT: Face/Nose/Sinus: Normal nares present Eyes: General: appearance normal, both eyes and all related structures Neck: Neck: no JVD Resp: Auscultation: clear to auscultation bilaterally Cardio: Rate: regular rate Rhythm: regular rhythm GI: Inspection: non-distended GI Palp: Yes Soft to palpation Skin: General skin exam: normal color Neuro: General: gait normal Speech: normal speech Extrem: General: normal to inspection Psych: Mental Status: mental status grossly normal Assessment and Plan Assessment and plan (1) Colon cancer screening: Code(s): Z12.11 - Encounter for screening for malignant neoplasm of colon Status: Acute Assessment and Plan: colonoscopy
--- NOTE | 2024-07-25 12:42 | SUR.OPER ---
unable to retrieve 1 ascending colon polyp md aware
[2024-07-25 12:44] VITALS: BP 120/86; PULSE 76; RESP 18; O2SAT 98
[2024-07-25 12:54] VITALS: BP 125/86; PULSE 73; RESP 21; O2SAT 100
[2024-07-25 13:04] VITALS: BP 128/91; PULSE 66; RESP 19; O2SAT 100
== END 2024-07-25 13:12 | disposition home or self-care (01) ==
PROVIDERS: PCP Nurse Practitioner Family; Referring Provider Nurse Practitioner Family; Visit Provider Internal Medicine Gastroenterology
PROC: 0DJD8ZZ Inspection of Lower Intestinal Tract, Via Natural or Artificial Opening Endoscopic (ICD-10-PCS; CPT 45378; principal; 2024-07-25 13:00)
DX: Z12.11 Encounter for screening for malignant neoplasm of colon (principal); D12.2 Benign neoplasm of ascending colon; D12.5 Benign neoplasm of sigmoid colon; D12.8 Benign neoplasm of rectum; K64.8 Other hemorrhoids; E78.5 Hyperlipidemia, unspecified; I10 Essential (primary) hypertension; F41.9 Anxiety disorder, unspecified; L42 Pityriasis rosea; F17.290 Nicotine dependence, other tobacco product, uncomplicated; Z79.85 Long-term (current) use of injectable non-insulin antidiabetic drugs; Z98.890 Other specified postprocedural states
CPT/HCPCS: 45385; 88305; J2704; J7120

== ENCOUNTER 2024-10-13 09:42 | Outpatient (CLI) | payer BC, SELFPAY ==
[2024-10-28 10:31] VITALS: BMI 30.4
--- NOTE | 2024-10-28 10:31 | WPDHOMESLEEP ---
Sleep Study - Home Unattended Date of Study: 10/13/24 Ordering Provider: Jorge L Wilhelm APRN Interpreting Provider: Kristina Ivoyr, DO Home Sleep Study Type: Watch PAT Height: 1.91 m Weight: 110.677 kg Body Mass Index: 30.4 Neck Circumference (inches): 17 [place]: 6 Reason for Sleep Study snoring, daytime hypersomnia Sleep History The patient is a 49-year-old male who had a sleep study ordered by the pulmonary group for evaluation of sleep apnea. The patient admits to snoring loudly, excessive daytime sleepiness, and interruptions in breathing while asleep. He denies choking or gasping at night. He denies having trouble breathing on his back. He does have morning headaches. He does have a dry or sore mouth and throat in the morning. He denies nocturnal heartburn. He urinates twice throughout the night. He does have difficulty returning to sleep if he wakes up throughout the night. He does have difficulty falling and staying asleep. He denies any hypnotic or sedative use. He does feel anxious about sleep. He does feel tired or sleepy during the day. He does feel tired in the morning. He does have the urge to fall asleep during the day. He denies feeling drowsy while driving. He denies sleep paralysis, cataplexy, and hypnagogic or hypnopompic hallucinations. He does clench or grind his teeth. He does kick or jerk his legs excessively. He does have a restless feeling in his legs that causes an urge to move his legs. The restless feeling gets worse with rest and better with activity. The restless feeling is worse in the evening or at nighttime. It does cause disturbance in his sleep. He goes to bed at 8 p.m. on workdays and his days off. It takes him 1 hour to fall asleep. He gets 6 hours and 15 minutes of sleep on workdays and 4 hours on his days off. His sleep is a little more restorative on days off. He denies taking any planned naps. He denies dream enactment behavior. He denies sleepwalking. He denies consuming any caffeinated beverages throughout the day. He denies tobacco use. He consumes more than 3 alcoholic beverages 3-4 nights per week. He denies exercising on a regular basis. [facility] Past Medical History Medical History Colon cancer screening Tinea corporis Pityriasis rosea ALEJO (generalized anxiety disorder) Hyperlipidemia HTN (hypertension) Surgical History Surgical History H/O rotator cuff surgery History of hernia surgery Family History Family History Other No family history of disorders Social History Social History Smoking packs per day: 2 Smoking cigarettes per day: 40.0 Years smoked: 20 Smoking pack-years: 40.00 Smoking status: Former smoker Tobacco type: cigarettes Smokeless tobacco user: other Smoking end date: 03/23/15 Additional smoking assessment comments: CURRENTLY USES NICOTINE ROGUE POUCHES 6MG DAILY Alcohol intake: current Drinks per week: 12 Alcohol use details: 12 PACK ON WEEKENDS Substance use: never Substance use type: does not use Other substance usage details: Every once in awile Do You Feel Safe in your Home?: Yes Lack of Transportation: No Lack of Food: Never True Current Housing: I Have Housing Concerned About Future Housing: No Difficulty Paying Gas/Electric Bills: No Difficulty Paying for Meds: No Currently Unemployed: No Education: Don't Know Difficulty w/ Childcare or Family Care: No Living arrangements: with family Additional living arrangements comments: Occupation/Education: occupation 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[employer] Spiritual care concerns: No Agree to blood products: Yes Medications Home Medications ?Medication ?Instructions ?Recorded ?Confirmed ?Type omeprazole 20 mg tablet,delayed 20 mg PO DAILY #90 tabs 04/29/24 09/03/24 Rx release rosuvastatin 5 mg tablet 5 mg PO DAILY #90 tabs 04/29/24 09/03/24 Rx semaglutide (weight loss) 0.25 0.25 mg (0.5 mL) subcut WEEKLY #2 06/03/24 09/03/24 Rx mg/0.5 mL subcutaneous pen mL injector (Cherry) semaglutide (weight loss) 0.5 0.5 mg (0.5 mL) subcut WEEKLY #2 mL 06/03/24 09/03/24 Rx mg/0.5 mL subcutaneous pen injector (Wegovy) semaglutide (weight loss) 1 mg/0.5 1 mg (0.5 mL) subcut WEEKLY #6 mL 06/03/24 09/03/24 Rx mL subcutaneous pen injector (Wegovy) nebivolol 5 mg tablet 5 mg PO DAILY #90 tabs 10/21/24 Rx sertraline 100 mg tablet 100 mg PO DAILY #90 tabs 10/21/24 Rx allopurinol 300 mg tablet 300 mg PO DAILY #90 tabs 10/22/24 Rx Sleep Procedure The sleep study was completed using [employer] a technically adequate device with seven channels: peripheral arterial tone, actigraphy, body position, snore, respiratory movement, pulse oximetry, sleep staging, and heart rate. Prior to using the device, the patient received verbal and written instructions for its application and was provided with the help desk phone number for additional telephonic instruction with 24-hour availability of qualified personnel to answer questions. The study was scored using CMS guidelines. Sleep Architecture The total recording time is 8 hrs, 58 min. The total sleep time is 6 hrs, 21 min. Sleep latency is 5 minutes. REM latency is 36 minutes. The patient had 17 episodes of waking. Sleep architecture shows 20.7% deep sleep, 55.0% light sleep, and (as % Total Sleep Time) showed NREM (Light 55.0%; Deep 20.7%), and a 24.3% stage REM. The patient spent 40.8% of total sleep time in the supine position. Sleep efficiency was 70.82. Respiratory Analysis The overall AHI (pAHI 4%:) is 3.4. The overall AHI (pAHI 3%:) is 10.7. The central AHI is 0.3. The AHI was 8.2 in NREM and 18.3 in REM sleep. The AHI was 11.5 in Supine and 10.1 in Non-supine sleep. Percent of Gerard Maloney respirations is 0.0. Oximetry Data The oxygen desaturation index (GERTRUDIS 4%:) is 2.9. The mean saturation is 94%, and the lowest saturation is 87%. Time spent with saturation < 88% is 0.0 minutes. Snoring Profile Snoring average intensity is 41 dB. The patient snored above 45 decibels for 22.7 minutes, 6.0% of sleep time. Cardiac Profile The average pulse rate is 70 beats per minutes. The lowest pulse rate is 53 bpm. The highest pulse rate reported is 117 bpm. Atrial fibrillation was not detected. Premature beats occur <0.1 per minute. Assessment and Plan Assessment and Plan (1) Sleep disturbances: Code(s): G47.9 - Sleep disorder, unspecified Status: Acute Assessment and Plan: Per AASM guidelines (pAHI 3%), The patient had an overall AHI of 10.7 with desaturation down to 87%. This is consistent with mild sleep apnea. Due to the patient's hypertension, he qualifies for treatment. I recommend that the patient be prescribed AutoPAP 5-15 cm H2O, CPAP mask/filters/tubing and heated humidity. A mandibular advancement is also acceptable treatment option. This should be used with all episodes of sleep.? Compliance should be reviewed within 31-90 days of starting therapy for usage greater than 4 hours per night greater than 70% of the nights. The patient should be asked about symptoms such as?excessive daytime sleepiness, quality of sleep, decreased nocturia, increased?mental functioning such as memory, mood, and concentration. Per CMS guidelines (pAHI 4%), the patient had overall AHI of 3.4 with desaturation down to 87%. This is not consistent with sleep disordered breathing. If the patient's insurance only recognizes CMS guidelines, the patient does not qualify for treatment. I would recommend a split study for further evaluation of his sleep disturbances. The patient's sleep history is suggestive of Restless Leg Syndrome. I recommend that the patient have a serum ferritin drawn for evaluation of iron deficiency anemia. If the patient has a serum ferritin less than 75 ng/mL, I recommend starting a daily iron supplement and a Vitamin C supplement for better absorption. If the serum ferritin is greater than 75 ng/mL, I recommend starting a dopamine agonist and titrating the dose until symptoms resolve. There are nonpharmacological methods to treat limb movements including daily exercise, stretching calf muscles before bed, avoiding excessive amounts of caffeine and alcohol, vitamin B supplementation, magnesium lotion massaged into legs before bed, and use of a weighted blanket. Data The data obtained during this sleep study is adequate for interpretation. Certification This sleep study has been reviewed by a board certified sleep medicine physician.
== END 2024-10-14 13:20 | disposition home or self-care (01) ==
LOC: ANHCSM 09:42
PROVIDERS: PCP Nurse Practitioner Family; Visit Provider Nurse Practitioner Family
DX: G47.30 Sleep apnea, unspecified (principal); G47.9 Sleep disorder, unspecified; I10 Essential (primary) hypertension; F39 Unspecified mood [affective] disorder
CPT/HCPCS: 95800